=== PATIENT | male | born 1950 | race Hispanic/Latino ===

== ENCOUNTER 2020-10-24 13:08 | Emergency (ER) | payer OTHER ==
[2020-10-24] MEDS ORDERED: OCTYL 2-CYANOACRYLATE 1 EACH TP ONE (14:18)
[2020-10-24] MEDS ORDERED: ACETAMINOPHEN 325 MG TAB ONE (14:18)
[2020-10-24] MEDS ORDERED: TETANUS/DIPHTHERIA TOXOID [ADULT] 0.5 ML VIAL IM ONE (14:19)
== END 2020-10-24 15:38 | disposition home or self-care (01) ==
LOC: EDH 13:08
DX: S01.81XA Laceration without foreign body of other part of head, initial encounter (principal); S63.92XA Sprain of unspecified part of left wrist and hand, initial encounter; S63.91XA Sprain of unspecified part of right wrist and hand, initial encounter; S09.90XA Unspecified injury of head, initial encounter; I10 Essential (primary) hypertension; E78.5 Hyperlipidemia, unspecified; W18.39XA Other fall on same level, initial encounter; Y93.01 Activity, walking, marching and hiking; Y92.89 Other specified places as the place of occurrence of the external cause; Y99.8 Other external cause status
CPT/HCPCS: 12013; 70450; 70486; 72125; 73130; 90471; 90714